=== PATIENT | female | born 1935 | race Caucasian/White ===

== ENCOUNTER 2020-06-30 07:01 | Inpatient (IN) | payer MEDICARE, SELFPAY ==
[2020-06-30] VITALS (14 sets, daily range): BP systolic 129–187; BP diastolic 75–95; PULSE 75–86; RESP 14–166; TEMP 36.6–37.1; O2SAT 92–98; BMI 35.4; BMI 35.2
--- NOTE | 2020-06-30 06:58 | ECG_ITS ---
APPROVED REPORT Exam: Resting ECG HR:82 bpm ECG Measurements Heart Rate 82 AXES QRSd 80 QRS 15 QT 394 T 66 QTc 460 Conclusion Accelerated Junctional rhythm Low voltage QRS Nonspecific ST abnormality Abnormal ECG Electronically signed by : Remberto Easton, 07/02/2020 07:30:34
--- NOTE | 2020-06-30 07:08 | HMH.EDGENADL ---
ED Disposition Condition on Discharge: Serious - Critical Care Critical Care Time: No <Eyad Aragon - Last Filed: 06/30/20 08:16> <Tosin Mcbride - Last Filed: 06/30/20 10:52> Clinical Impression: Elevated troponin Cerebrovascular accident Qualifiers: CVA mechanism: unspecified Qualified Code(s): I63.9 - Cerebral infarction, unspecified Hematuria Qualifiers: Hematuria type: gross Qualified Code(s): R31.0 - Gross hematuria Disposition: Still a Patient Referrals: Devyn Perez MD [Primary Care Provider] - Attestation: On 06/30/20, the high probability of a clinically significant, sudden or life threatening deterioration of the following system(s) required my full and direct attention, intervention and personal management. The time I documented below is in addition to time spent performing reported procedures but includes the following listed in this critical care notation. Medical Decision Making - [place] Inquiry Pt receiving controlled substance: No - Lab Data Result diagrams: 06/30/20 06:55 06/30/20 06:55 - Radiology Data #1 Image(s): Chest Image Reviewed: Yes I reviewed the patient's radiology image Preliminary Findings: Normal/NAD - CT Data CT Scan: Head Time Received: 07:[address] Reviewed: Yes: I have viewed the radiologist's interpretation - Physician Consults Physician Consulted: Gigi Time: 08:12 Reason -: Admission, Pt condition Comment/Response: Requests CT abdomen and pelvis with contrast to evaluate hematuria and status of cancer. Feel she is likely a hospice candidate. <Eyad Aragon - Last Filed: 06/30/20 08:16> - Lab Data Result diagrams: 06/30/20 06:55 06/30/20 06:55 - CT Data CT Scan: Abdomen <Tosin Mcbride - Last Filed: 06/30/20 10:52> Vital Signs: 06/30/20 07:05 06/30/20 07:09 06/30/20 07:50 Temperature 98.2 F Temperature Source Oral Pulse Rate 83 86 Pulse Rate [Radial] 82 Respiratory Rate 18 19 Blood Pressure 157/95 H Blood Pressure [Right Arm] 162/82 H Blood Pressure Mean 115 Blood Pressure Mean [Right Arm] 108 Blood Pressure Position [Right Arm] Sitting 02 Sat by Pulse Oximetry 93 L 98 94 L Oxygen Delivery Method Room Air 06/30/20 08:01 06/30/20 08:50 06/30/20 09:31 Temperature Temperature Source Pulse Rate 81 77 75 Pulse Rate [Radial] Respiratory Rate 26 H 14 26 H Blood Pressure 168/75 H 187/87 H Blood Pressure [Right Arm] Blood Pressure Mean 106 96 Blood Pressure Mean [Right Arm] Blood Pressure Position [Right Arm] 02 Sat by Pulse Oximetry 93 L 95 95 Oxygen Delivery Method 06/30/20 10:01 Temperature Temperature Source Pulse Rate 84 Pulse Rate [Radial] Respiratory Rate 25 H Blood Pressure 178/86 H Blood Pressure [Right Arm] Blood Pressure Mean 110 Blood Pressure Mean [Right Arm] Blood Pressure Position [Right Arm] 02 Sat by Pulse Oximetry 95 Oxygen Delivery Method - Lab Data Lab Results 06/30/20 06:55: WBC 9.4, RBC 4.30, Hgb 12.9, Hct 39.8, MCV 92.5, MCH 30.0, MCHC 32.4, RDW 15.2, Plt Count 388, MPV 7.2 L, Neut % (Auto) 77.9, Lymph % (Auto) 14.5, [place] % (Auto) 5.4, Eos % (Auto) 1.8, Baso % (Auto) 0.4, Neut # (Auto) 7.3, Lymph # (Auto) 1.4, [place] # (Auto) 0.5, Eos # (Auto) 0.2, Baso # (Auto) 0.0 06/30/20 06:55: Sodium 138, Potassium 3.8, Chloride 100, Carbon Dioxide 30, Anion Gap 11.8, BUN 12, Creatinine 0.50 L, Estimated Creat Clear 61, Estimated GFR 118, Est GFR ( Amer) 143, Glucose 174 H, Calcium 9.2, Troponin I 0.06 H 06/30/20 06:55: PT 11.0, INR 0.93, APTT 24.0 06/30/20 07:46: Chlamy pneumoniae PCR Not detected, Adenovirus (PCR) Not detected, B. pertussis DNA (PCR) Not detected, Coronavirus OC43 (PCR) Not detected, Coronavirus HKU1 (PCR) Not detected, Coronavirus 229E (PCR) Not detected, SARS-CoV-2 (PCR) Not detected, Coronavirus NL63 (PCR) Not detected, Human Metapneumovir PCR Not detected, Influenza A (H1) PCR Not detected, Influ A (H1N1/09) PCR Not detected
--- NOTE | 2020-06-30 07:15 | CT_ITS ---
PROCEDURE: CT HEAD/BRAIN WO CON CLINICAL INDICATION: increased left facial droop, prior CVA Prior CVA. Worsening left facial droop COMPARISON: No exams were available for comparison TECHNIQUE: Axial images obtained. All CT scans at the facility use one or more dose reduction, viz: automated exposure control, ma/kV adjustment per patient size (including targeted exams where dose is matched to indication, i.e. head), or iterative reconstruction technique. FINDINGS: No midline shift, mass effect, intracranial hemorrhage, hydrocephalus, or extra-axial fluid collection is evident. There is generalized atrophy with hypoattenuation of the periventricular white matter consistent with microangiopathic changes.. And 11 mm cystic areas present in the right basal ganglia contiguous with the body of the right lateral ventricle inferiorly and may be due to an area of cystic encephalomalacia from an old lacunar infarction. The calvarium has an unremarkable appearance. No mastoid effusion. No sinus air-fluid level. There is a lipoma in the left frontal scalp area measuring 3 cm by 0.7 cm. IMPRESSION: 1. No acute intracranial findings. 2. Atrophy with chronic ischemic changes with an old lacunar infarction in the right basal ganglia Dictated by: Nadeem Hernandez MD 06/30/2020 07:46 Nadeem Hernandez MD in [facility] 06/30/2020 07:46
--- NOTE | 2020-06-30 07:16 | XR_ITS ---
PROCEDURE: XR CHEST PORTABLE CLINICAL HISTORY: stroke symptoms COMPARISON: No exams were available for comparison FINDINGS: The cardiomediastinal silhouette and pulmonary vascularity are within normal limits. The lungs are clear without infiltrates, suspicious nodules, or pleural effusions. There monitor lines overlying the chest. No acute bony abnormalities. There are mild degenerate changes thoracic spine. There is prominent degenerate change of both shoulders. IMPRESSION: Nonacute chest findings Dictated by: Dr. Vivek Charles MD 06/30/2020 09:04 Dr. Vivek Charles MD in [facility] 06/30/2020 09:04
[2020-06-30 07:27] LABS: Chloride 100 mmol/L (98-107); Potassium 3.8 mmoL/L (3.5-5.1); Sodium 138 mmol/L (136-145)
[2020-06-30 07:30] LABS: Blood Urea Nitrogen 12 mg/dl (7-17); Creatinine Clearance Estimated 61 mL/min (50-200); Estimated Glomerular Filt Rate 118 ml/min (>60); GFR (African American) 143 ML/MIN (>60)
[2020-06-30 07:31] LABS: Anion Gap 11.8 mEq/L (5-15); Calcium 9.2 mg/dl (8.4-10.2); Carbon Dioxide 30 mmol/L (22.0-30.0); Glucose 174 mg/dl (74-100)
[2020-06-30 07:33] LABS: Basophils % 0.4 % (0.1-2.0); Eosinophils # 0.2 K/mm3 (0.0-0.4); Eosinophils % 1.8 % (0.1-12.0); Hematocrit 39.8 % (37.0-47.0); Hemoglobin 12.9 g/dL (12.2-16.2); Lymphocytes # 1.4 K/mm3 (0.7-4.5); Lymphocytes % 14.5 % (10-50); Mean Corpuscular HGB Conc 32.4 g/dL (31.8-35.4); Mean Corpuscular Volume 92.5 fl (81-99); Mean Platelet Volume 7.2 fl (7.4-10.4); Monocytes # 0.5 K/mm3 (0.1-1.0); Monocytes % 5.4 % (1.7-9.3); Neutrophils # 7.3 K/mm3 (1.8-7.8); Neutrophils % 77.9 % (37.0-80.0); Platelet Count 388 K/mm3 (142-424); Red Cell Distribution Width 15.2 % (11.5-17.5); White Blood Count 9.4 K/mm3 (4.8-10.8)
[2020-06-30 07:36] LABS: INR 0.93 (0.9-1.1)
[2020-06-30 07:43] LABS: Troponin I 0.06 ng/ml (0.00-0.034)
--- NOTE | 2020-06-30 07:50 | PC.NURSE ---
Dr salazar pt, dr Love in relationship counselor for callie, he has been paged for pt.
[2020-06-30 07:56] LABS: Adenovirus,PCR Not Detected (NotDetected); Bordetella Pertussis Not Detected (NotDetected); Chlamydophila Pneumoniae, PCR Not Detected (NotDetected); Coronavirus 19, PCR Not Detected (NotDetected); Coronavirus 229E Not Detected (NotDetected); Coronavirus NL63 Not Detected (NotDetected); Coronavirus OC43 Not Detected (NotDetected); Coronovirus HKU1,PCR Not Detected (NotDetected); Human Metapneumovirus Not Detected (NotDetected); Influenza A, PCR Not Detected (NotDetected); Influenza AH1, 2009 Not Detected (NotDetected); Influenza AH1, PCR Not Detected (NotDetected); Influenza AH3,PCR Not Detected (NotDetected); Influenza B, PCR Not Detected (NotDetected); Mycoplasma Pneumoniae, PCR Not Detected (NotDetected); Parainfluenza 1, PCR Not Detected (NotDetected); Parainfluenza 2, PCR Not Detected (NotDetected); Parainfluenza 3, PCR Not Detected (NotDetected); Parainfluenza 4, PCR Not Detected (NotDetected); Respiratory Syncytial Virus Not Detected (NotDetected); Rhinovirus/Enterovirus Not Detected (NotDetected)
[2020-06-30 08:02] LABS: Microscopic,Cath URINE MICROSCOPIC (MICROSCOPIC)
[2020-06-30 08:03] LABS: Appearance,Urine/Cath CLOUDY (Clear); Bilirubin,Cath Negative (Negative); Blood, Urine/Cath 3+ (Negative); Color,Urine/Cath DK YELLOW (Yellow); Glucose,Urine/Cath (UA) Negative (Negative); Ketones,Urine/Cath Negative (Negative); Leukocyte Esterase,Cath 1+ (Negative); Nitrate,Cath Negative (Negative); Protein,Urine/Cath 1+ (Negative)
--- NOTE | 2020-06-30 08:05 | PC.NURSE ---
ARGELIA CORNELL speaking with Dr. Yu
--- NOTE | 2020-06-30 08:10 | CT_ITS ---
PROCEDURE: CT ABDOMEN PELVIS W CON CLINICAL INDICATION: hematuria, h/o uterine cancer COMPARISON: No exams were available for comparison TECHNIQUE: IV Contrast: 75ML OPTIRAY 350 Oral Contrast none given Axial images obtained with sagittal and coronal reformats. All CT scans at the facility use one or more dose reduction, viz: automated exposure control, ma/kV adjustment per patient size (including targeted exams where dose is matched to indication, i.e. head), or iterative reconstruction technique. FINDINGS: Lower thorax: Minimal bilateral basilar atelectasis, there is no pleural fluid ABDOMEN: Liver: There is a tiny hepatic cyst anterior aspect left lobe of the liver. In addition there is a prominent coarse calcification adjacent to the small hepatic cysts which likely is a calcified hepatic cyst anterior aspect of the right lobe of the liver. Gallbladder: The gallbladder is mildly distended and there are multiple calcified gallstones near the neck of the gallbladder. The common bile duct is mildly dilated down to the Ampulla of Vater. Pancreas: There is a dominant cystic lesion in the uncinate process of the head of the pancreas in the pancreatic duct is mildly dilated. This cystic lesion measures 2.2 x 2.2 by 2.2 cm. There are smaller cystic lesions in the head of the pancreas as well. Recommend follow-up MRI scan of the abdomen for better evaluation of suspected pancreatic carcinoma. Spleen: unremarkable Adrenals: unremarkable Kidneys/ureters: The kidneys are normal in size and show symmetrical function. There is a dominant benign-appearing cyst lower pole right kidney measuring 6.0 x 5.7 x 6.5 cm. There is an extrarenal pelvis of the left kidney however there is no obstructive uropathy of either kidney. ABDOMEN & PELVIS: Stomach bowel: There is a moderate-sized hiatal hernia. The stomach is grossly normal. The small bowel is normal. The appendix is normal. There is a large amount stool throughout the colon. There is diffuse diverticulosis of the sigmoid colon without evidence of diverticulitis. Peritoneum: There is a small ventral hernia just to the left of midline containing possibly mesenteric fat, doubt loop of bowel within the hernia. There is a small umbilical hernia with a nondilated loop of small bowel projecting into the hernia.. Fluid collections. No obvious inflammatory changes. No free air. Lymph nodes: No enlarged lymph nodes apparent. Vasculature: There is diffuse arthrosclerotic calcification of the abdominal aorta but there is no aneurysm. Bones: There multilevel degenerate changes of the lower thoracic and lumbar spine. PELVIS: Reproductive: Patient is post hysterectomy by history for uterine carcinoma however there appears to be either recurrence of tumor or part of the uterus was left behind at the time of surgery. Bladder: There is a Dillon catheter at the base of the urinary bladder which is decompressed. There is a tiny amount of air within the urinary bladder and there is diffuse thickening of the bladder wall likely due to the fact it is decompressed. Appendix: Unremarkable. No distention or periappendiceal phlegmonous change. IMPRESSION: 1. Obvious cholelithiasis with probable calcified hepatic cyst immediately adjacent to the gallbladder 1. Dilated pancreatic duct with cystic lesion uncinate process head of the pancreas worrisome for carcinoma and consider follow-up MRI scan of the abdomen for additional evaluation. 2. Large benign-appearing simple cyst lower pole right kidney, extrarenal pelvis left kidney 3. Possible recurrence of uterine carcinoma, recommend the review of the surgical report regarding her hysterectomy 4. Diffuse diverticulosis sigmoid co
[2020-06-30 08:17] LABS: Bacteria,Urine/Cath TRACE /lpf; RBC,Urine/Cath TNTC # /hpf (0-3); WBC,Urine/Cath 20-50 #/hpf (0-3)
--- NOTE | 2020-06-30 08:29 | PC.NURSE ---
pt confused, no facial droop noted. family at bedside.
--- NOTE | 2020-06-30 09:30 | PC.NURSE ---
PT AND FAMILY UPDATED ON PLAN OF CARE
--- NOTE | 2020-06-30 10:35 | PC.NURSE ---
called dr acevedo for dr brannon, staff said they would tell him to call er.
[2020-06-30 11:04] LABS: Troponin I 0.05 ng/ml (0.00-0.034)
--- NOTE | 2020-06-30 12:33 | HMH.PHAINT ---
MEDICATION RECONCILIATION COMPLETED ON PATIENT USING [facility]. -AKI BALES, GRAHAMD
--- NOTE | 2020-06-30 12:34 | HMH.PHAVTE ---
[facility] Pharmacy VTE Monitoring - Patient Demographics Admission date: 06/30/20 Report Date: 06/30/20 Time: 12:34 Allergies/Adverse Reactions: Patient Allergies No Known Allergies Allergy (Verified 06/11/20 17:16) Height: 1.6 m Weight: 90.718 kg Patient Problems: Current Active Problems Cerebrovascular accident (Acute) Hematuria (Acute) Elevated troponin (Acute) - VTE Risk Labs: VTE Related Lab Results Hgb 12.9 g/dL (12.2-16.2) 06/30/20 06:55 Hct 39.8 % (37.0-47.0) 06/30/20 06:55 Plt Count 388 K/mm3 (142-424) 06/30/20 06:55 PT 11.0 seconds (10.1-12.5) 06/30/20 06:55 INR 0.93 (0.9-1.1) 06/30/20 06:55 APTT 24.0 seconds (22.8-30.6) 06/30/20 06:55 BUN 12 mg/dl (7-17) 06/30/20 06:55 Creatinine 0.50 mg/dl (0.52-1.04) L 06/30/20 06:55 Estimated Creat Clear 61 mL/min (50-200) 06/30/20 06:55 - Prophylaxis VTE Prophylaxis Ordered?: Yes Types of VTE Prophylaxis: TEDS Knee High Location of Applied Device: Bilateral Lower Extremeties
--- NOTE | 2020-06-30 12:47 | SW/DCPLANNER ---
This patient currently resides at [facility]. I have spoke with Iwona from [facility] to confirm patient is [facility] level of care at their facility. I will continue to update Iwona until patient is medically stable for discharge.
[2020-06-30 14:47] LABS: Troponin I 0.04 ng/ml (0.00-0.034)
[2020-06-30 16:23] LABS: POC Glucose,Bedside 140 (70-110)
[2020-06-30 16:58] LABS: POC Glucose,Bedside 148 (70-110)
--- NOTE | 2020-06-30 17:23 | PC.NURSE ---
Pt has been oriented to name, , and place this shift but not time. Pt states the year is 191 . Lung sounds remain CTA. Dillon cath remains patent and is draining cloudy, dark yellow urine. Pt has had vaginal bleeding that is dark red in color in her brief. Pt states this has been happening for a while . Pt is able to turn in bed w/ one assist. Left arm remains flexed at the elbow, but that is pt's baseline. Wild weakness noted to LLE as well. Non-pitting edema noted to BLE. No other acute changes or complaints at this time.
--- NOTE | 2020-06-30 20:15 | PC.NURSE ---
pt transferred to room 280 at this time via stretcher no distress noted at this time
--- NOTE | 2020-06-30 20:30 | HMH.HP ---
*Admission Date: 06/30/20 *Chief complaint: stroke *History of present illness: Patient is an 84-year-old white female who is admitted through the emergency room for stroke symptoms. [place] [facility] [place] noted worsening left facial droop and worsening dysarthria. She has a history of hemorrhagic stroke. CT imaging through the emergency room showed an old lacunar infarct in the right basal ganglion. Her NIH stroke score was 13. Patient also has a history of uterine carcinoma. She is status post hysterectomy. She is having some vaginal bleeding. She was being treated at , but subsequently made a decision to withhold treatment. CT abdomen and pelvis was obtained through the emergency room. Findings include a dilation of the pancreatic duct with a cystic lesion noted at the uncinate process. Cholelithiasis was evident. Cystic lesion noted in the right kidney. Findings also suspicious for a recurrence of her uterine cancer. Patient was unable to provide much of a history initially per ER work-up. Subsequently her speech has improved, he answers questions appropriately and is oriented to place. She knows that she is in [facility]. The left facial droop looks to be improved from previous description. She is able to move all 4 extremities. Practicing Md Anesthesiologist is weak bilaterally but nearly symmetric. He appears to be comfortable. There is no overt jaundice. Her abdomen is soft, without focal tenderness. She is admitted for further evaluation and treatment. Anticoagulation, platelet inhibitors are contraindicated at present given her history of hemorrhagic stroke and vaginal bleeding. [facility] History Medical History: Reports:: Cerebrovascular Accident, Depression, Diabetes Mellitus Type 2, Hyperlipidemia, Hypertension, Transient Ischemic Attacks (TIA) Denies:: Diabetes Mellitus Type 1 *Have you ever received a pneumonia vaccine?: No (refused) *Have you received a flu vaccine this season?: Yes Other Medical History: Reports: Other Other Surgeries: Yes: No Previous Surgery, Hysterectomy-Total Amputation: No Fractures: No - *Social History Last grade of school completed: High school graduate Smoking Status: Never smoker Alcohol Intake: never Alcohol Intake Frequency:: other Substance Use Type: denies use *Occupational Status:: disabled Housing: senior living Household Members: other *Travel in the last 8 weeks: None - Psychiatric History Pschychiatric History:: Reports:: Depression Family Hx:: Unable to obtain Review of Systems - Constitutional Reports lack of energy, Reports weakness - Eyes Denies loss of vision - ENT Reports abnormal hearing - *Cardiovascular Denies chest pain - *Respiratory Denies chest congestion - *Gastrointestinal Denies abdominal pain - *Genitourinary Reports other Comments: vaginal bleeding, history of uterine ca - *Musculoskeletal Reports abnormal walking, Reports muscle weakness - Integumentary/Breasts Reports other Comments: facial nodules noted - *Neurologic Reports abnormal speech, Reports unsteadiness, Reports weakness - Psychiatric Reports confusion, Denies anxiety - Endocrine Denies flushing - Hematologic/Lymphatic Reports easy bleeding - Allergic/Immunologic Denies hives Meds Home Medications Medication Instructions Recorded Confirmed Type bisacodyl 10 mg rectal suppository 10 mg AR DAILY PRN #28 each 04/13/18 06/30/20 Rx sennosides 8.6 mg-docusate sodium 1 tab PO BID PRN #30 tab 04/13/18 06/30/20 Rx 50 mg tablet sertraline 50 mg tablet 50 mg PO DAILY #90 tab 04/13/18 06/30/20 Rx Acetaminophen [Acetaminophen 325mg 650 mg PO Q6HP PRN 06/30/20 06/30/20 History tab] Atorvastatin Calcium [Lipitor 40mg 40 mg PO HS 06/30/20 06/30/20 History Tablet*] Loratadine [Claritin 10mg 10 mg PO DAILY 06/30/20 06/30/20 History Tablet] Losartan Potassium 100 mg PO DAILY 06/30/20
[2020-06-30 20:32] LABS: Troponin I 0.04 ng/ml (0.00-0.034)
[2020-07-01] VITALS (10 sets, daily range): BP systolic 151–161; BP diastolic 68–91; PULSE 60–80; RESP 18–20; TEMP 36.7–37; O2SAT 92–100
[2020-07-01 05:16] LABS: POC Glucose,Bedside 167 (70-110)
--- NOTE | 2020-07-01 05:49 | PC.NURSE ---
pt has rested well throughout shift, no change from previous assessment, moderate amount of vaginal bleeding lita care provided, catheter patent, vss, no needs at this time will continue to monitor.
[2020-07-01 06:51] LABS: Basophils % 0.4 % (0.1-2.0); Eosinophils # 0.2 K/mm3 (0.0-0.4); Lymphocytes # 1.2 K/mm3 (0.7-4.5); Lymphocytes % 16.3 % (10-50); Mean Corpuscular HGB Conc 33.2 g/dL (31.8-35.4); Mean Corpuscular Hemoglobin 30.9 pg (27.0-31.2); Mean Corpuscular Volume 92.9 fl (81-99); Mean Platelet Volume 7.8 fl (7.4-10.4); Monocytes # 0.5 K/mm3 (0.1-1.0); Monocytes % 6.5 % (1.7-9.3); Neutrophils # 5.5 K/mm3 (1.8-7.8); Neutrophils % 74.8 % (37.0-80.0); Platelet Count 330 K/mm3 (142-424); Red Blood Count 3.66 M/mm3 (4.20-5.40); Red Cell Distribution Width 15.1 % (11.5-17.5); White Blood Count 7.4 K/mm3 (4.8-10.8)
[2020-07-01 06:58] LABS: Hemoglobin 11.3 g/dL (12.2-16.2)
[2020-07-01 07:00] LABS: Chloride 105 mmol/L (98-107); Potassium 4.3 mmoL/L (3.5-5.1); Sodium 139 mmol/L (136-145)
[2020-07-01 07:03] LABS: Alanine Aminotransferase 15 U/L (12-78); Albumin Level 3.5 g/dl (3.5-5.0); Albumin/Globulin Ratio 1.3 (1.1-1.8); Alkaline Phosphatase 174 U/L (38-126); Anion Gap 7.3 mEq/L (5-15); Aspartate Amino Transferase 26 U/L (14-36); Bilirubin,Total 0.5 mg/dl (0.2-1.3); Blood Urea Nitrogen 15 mg/dl (7-17); Carbon Dioxide 31 mmol/L (22.0-30.0); Creatinine Clearance Estimated 69 mL/min (50-200); Estimated Glomerular Filt Rate 95 ml/min (>60); GFR (African American) 116 ML/MIN (>60); Globulin 2.7 g/dL (1.3-3.2); Glucose 149 mg/dl (74-100); Total Protein,Serum 6.2 g/dl (6.3-8.2)
--- NOTE | 2020-07-01 07:13 | PC.NURSE ---
report given to Leticia Jonas RN
--- NOTE | 2020-07-01 09:10 | INFXCTL.NOTE ---
TOLD DR. ADDISON ABOUT GYNO CONSULT. STATES IT WOULD BE BEST FOR DR. FRANCISCO TO ROUND ON PATIENT THIS FRIDAY.
--- NOTE | 2020-07-01 13:35 | HMH.ACPN2 ---
Internal Medicine - PN: Subj *Date: 07/01/20 *Time: 09:00 Interval history: pt laying in bed with family at bedside pt answering questions, left side weakness Exam Vital signs and Labs for Last 24 Hours: Temp Pulse Resp BP Pulse Ox 98.2 F 69 18 151/78 H 100 07/01/20 08:00 07/01/20 08:00 07/01/20 08:00 07/01/20 08:00 07/01/20 08:30 Laboratory Results - last 24 hr 06/30/20 12:22: POC Glucose 140 H 06/30/20 14:02: Troponin I 0.04 H 06/30/20 16:50: POC Glucose 148 H 06/30/20 20:05: Troponin I 0.04 H 06/30/20 21:11: POC Glucose 167 H 07/01/20 06:30: WBC 7.4, RBC 3.66 L, Hgb 11.3 L D, Hct 34.0 L, MCV 92.9, MCH 30.9, MCHC 33.2, RDW 15.1, Plt Count 330, MPV 7.8, Neut % (Auto) 74.8, Lymph % (Auto) 16.3, [place] % (Auto) 6.5, Eos % (Auto) 2.0, Baso % (Auto) 0.4, Neut # (Auto) 5.5, Lymph # (Auto) 1.2, [place] # (Auto) 0.5, Eos # (Auto) 0.2, Baso # (Auto) 0.0 07/01/20 06:30: Sodium 139, Potassium 4.3, Chloride 105, Carbon Dioxide 31 H, Anion Gap 7.3, BUN 15, Creatinine 0.60, Estimated Creat Clear 69, Estimated GFR 95, Est GFR ( Amer) 116, Glucose 149 H, Calcium 9.0, Total Bilirubin 0.5, AST 26, ALT 15, Alkaline Phosphatase 174 H, Total Protein 6.2 L, Albumin 3.5, Globulin 2.7, Albumin/Globulin Ratio 1.3 I & O for Last 24 hours: Intake & Output 06/29/20 06/30/20 07/01/20 07/02/20 11:59 11:59 11:59 11:59 Intake Total 600 / 600 Output Total 450 / 450 Balance 150 / 150 Weight 200 lb 224 lb 13.944 oz Microbiology Reports for the Last 24 Hours: Microbiology 06/30/20 07:55 Urine,Catheterized Urine Culture - Preliminary NO GROWTH AFTER 24 HOURS - Constitutional no acute distress, obese - *Routine HEENT Exam Head: Present: normocephalic Eye: Present: PERRL ENT: Present: mucous membranes moist - *Routine Neck Exam Present: supple. Absent: lymphadenopathy - *Routine Respiratory Exam Present: CTA bilaterally - *Routine Cardiovascular Exam Present: RRR - *Routine Abdominal Exam Present: soft, normoactive bowel sounds, tenderness - *Routine Extremities Exam Present: edema, normal capillary refill. Absent: cyanosis, clubbing - *Routine Skin Exam Present: warm. 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 Category: Medical Code(s): I69.922 - Dysarthria following unspecified cerebrovascular disease (3) Essential (primary) hypertension Status: Chronic Category: Medical Code(s): I10 - Essential (primary) hypertension (4) Hyperlipidemia Status: Chronic Qualifiers: Hyperlipidemia type: other hyperlipidemia Qualified Code(s): E78.49 - Other hyperlipidemia Category: Medical Code(s): E78.5 - Hyperlipidemia, unspecified (5) Obesity Status: Chronic Qualifiers: Obesity type: due to excess calories Obesity classification: adult class 2 (BMI 35 - 39.9) Serious obesity comorbidity presence: unspecified whether serious comorbidity present Body mass index: BMI 35.0-35.9 Qualified Code(s): E66.09 - Other obesity due to excess calories; Z68.35 - Body mass index [BMI] 35.0-35.9, adult Category: Medical Code(s): E66.9 - Obesity, unspecified (6) Other specified depressive episodes Status: Chronic Category: Medical Code(s): F32.89 - Other specified depressive episodes (7) Uterine cancer Status: Chronic Category: Medical Code(s): C55 - Malignant neoplasm of uterus, part unspecified (8) Lesion of pancreas Status: Acute Category: Medic
--- NOTE | 2020-07-01 13:50 | PC.NURSE ---
PATIENT SITTING UP IN BED EATING LUNCH. VISITOR IS AT BEDSIDE. NO CURRENT NEEDS VOICED TO NURSE.
--- NOTE | 2020-07-01 15:07 | PC.NURSE ---
PERICARE PROVIDED TO PT. CHANGED CHUX AND CLEAN ATTENDS PUT ON. MODERATE AMOUNT OF DARK RED BLEEDING NOTED. WILL WEIGH THIS. PT REPORTS NO PAIN. LEGS ELEVATED R/T EDEMA TO LOWER EXTREMITIES. WILL CONTINUE TO ASSESS BLEEDING.
--- NOTE | 2020-07-01 16:00 | PC.NURSE ---
REASSESSMENT PERFORMED AT THIS TIME, NO CHANGED NOTED. A/OX4. PT IS HARD OF HEARING. LEFT SIDED WEAKNESS NOTED FROM PREVIOUS STROKE. PULSES 2+. 2+ EDEMA NOTED TO BLE. ELEVATED ON PILLOWS. IV TO RIGHT A/C SALINE LOCKED. PT DENIES PAIN. LUNGS CTA AND BOWEL ACTIVE X4. NO BM MY SHIFT. SMALL AMOUNT OF VAGINAL BLEEDING NOTED NOW. DARK RED IN COLOR. NO NEEDS.
--- NOTE | 2020-07-01 18:20 | PC.NURSE ---
NURSE AND TECH IN ROOM CHANGING PATIENT . MODERATE AMOUNT OF BRIGHT RED VAGINAL BLEEDING. EGG SIZED CLOTS NOTED. PERICARE PROVIDED. PT REPORTS NO PAIN AT THIS TIME. WILLCONTINUE TO CLOSELY MONITOR HER BLEEDING. NEW ATTENDS AND PADS APPLIED.
[2020-07-02 04:35] VITALS: BP 145/87; PULSE 96; RESP 18; TEMP 37.1; O2SAT 94
--- NOTE | 2020-07-02 05:24 | PC.NURSE ---
Total EBL from vaginal bleeding this shift was 477mls.
--- NOTE | 2020-07-02 08:00 | US_ITS ---
PROCEDURE: US PELVIC CLINICAL INDICATION: pelvic mass , History of uterine cancer COMPARISON: CT CT ABDOMEN PELVIS W CON from 06/30/2020 FINDINGS: Patient has had a prior total hysterectomy by report. There is a midline soft tissue mass in the pelvis measuring 6 x 4 cm corresponding to the abnormality noted CT scan suspicious for recurrence uterine cancer. On the CT scan there is are 2 soft tissue masses 1 in the uterine bed in 1 superior to the uterine bed measuring 4 cm. No cul-de-sac fluid. IMPRESSION: Solid-appearing soft tissue mass of the pelvis suspicious for recurrence uterine cancer Dictated by: Nadeem Hernandez MD 07/02/2020 13:49 Nadeem Hernandez MD in [facility] 07/02/2020 13:49
[2020-07-02 08:08] VITALS: BP 152/87; PULSE 70; RESP 18; TEMP 37.2; O2SAT 94
[2020-07-02 08:20] VITALS: O2SAT 94
[2020-07-02 08:55] LABS: Anion Gap 9.7 mEq/L (5-15); Basophils % 0.2 % (0.1-2.0); Blood Urea Nitrogen 14 mg/dl (7-17); Calcium 9.1 mg/dl (8.4-10.2); Carbon Dioxide 28 mmol/L (22.0-30.0); Chloride 102 mmol/L (98-107); Creatinine Clearance Estimated 69 mL/min (50-200); Eosinophils # 0.1 K/mm3 (0.0-0.4); Eosinophils % 1.7 % (0.1-12.0); Estimated Glomerular Filt Rate 95 ml/min (>60); GFR (African American) 116 ML/MIN (>60); Glucose 216 mg/dl (74-100); Hematocrit 34.5 % (37.0-47.0); Hemoglobin 11.5 g/dL (12.2-16.2); Mean Corpuscular HGB Conc 33.2 g/dL (31.8-35.4); Mean Corpuscular Hemoglobin 30.9 pg (27.0-31.2); Mean Corpuscular Volume 92.9 fl (81-99); Monocytes # 0.4 K/mm3 (0.1-1.0); Monocytes % 4.6 % (1.7-9.3); Neutrophils % 81.6 % (37.0-80.0); Platelet Count 363 K/mm3 (142-424); Potassium 3.7 mmoL/L (3.5-5.1); Red Blood Count 3.71 M/mm3 (4.20-5.40); Red Cell Distribution Width 15.1 % (11.5-17.5); Sodium 136 mmol/L (136-145); White Blood Count 8.6 K/mm3 (4.8-10.8)
--- NOTE | 2020-07-02 09:30 | PC.NURSE ---
RADIOLOGY AT BEDSIDE PERFORMING PELVIC ULTRASOUND
--- NOTE | 2020-07-02 09:50 | HMH.ACPN2 ---
Internal Medicine - PN: Subj *Date: 07/03/20 *Time: 07:50 Interval history: pt with improvement w/o pain and no acute neuro changes Exam Vital signs and Labs for Last 24 Hours: Temp Pulse Resp BP Pulse Ox 98.9 F 70 18 152/87 H 94 L 07/02/20 08:08 07/02/20 08:08 07/02/20 08:08 07/02/20 08:08 07/02/20 08:08 Laboratory Results - last 24 hr 07/02/20 08:31: WBC 8.6, RBC 3.71 L, Hgb 11.5 L, Hct 34.5 L, MCV 92.9, MCH 30.9, MCHC 33.2, RDW 15.1, Plt Count 363, MPV 8.0, Neut % (Auto) 81.6 H, Lymph % (Auto) 12.0, Sully % (Auto) 4.6, Eos % (Auto) 1.7, Baso % (Auto) 0.2, Neut # (Auto) 7.0, Lymph # (Auto) 1.0, Sully # (Auto) 0.4, Eos # (Auto) 0.1, Baso # (Auto) 0.0 07/02/20 08:31: Sodium 136, Potassium 3.7, Chloride 102, Carbon Dioxide 28, Anion Gap 9.7, BUN 14, Creatinine 0.60, Estimated Creat Clear 69, Estimated GFR 95, Est GFR ( Amer) 116, Glucose 216 H, Calcium 9.1 I & O for Last 24 hours: Intake & Output 06/29/20 06/30/20 07/01/20 07/02/20 11:59 11:59 11:59 11:59 Intake Total 1000 / 1000 240 / 240 Output Total 450 / 450 1377 / 1377 Balance 550 / 550 -1137 / -1137 Weight 200 lb 224 lb 13.944 oz Microbiology Reports for the Last 24 Hours: Microbiology 06/30/20 07:55 Urine,Catheterized Urine Culture - Final NO GROWTH AFTER 48 HOURS - Constitutional no acute distress, obese - *Routine HEENT Exam Head: Present: normocephalic Eye: Present: EOMI, PERRL ENT: Present: mucous membranes dry - *Routine Neck Exam Present: supple - *Routine Respiratory Exam Present: CTA bilaterally - *Routine Cardiovascular Exam Present: RRR, murmur, S4 - *Routine Abdominal Exam Present: soft - *Routine Extremities Exam Absent: calf tenderness - *Routine Skin Exam Present: intact - *Routine Neurological Exam Present: alert, CN II-XII intact - Routine Psychiatric Exam Present: normal affect Assessment and Plan (1) Cerebrovascular accident Status: Acute Qualifiers: CVA mechanism: unspecified Qualified Code(s): I63.9 - Cerebral infarction, unspecified Category: Medical Code(s): I63.9 - Cerebral infarction, unspecified (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 Category: Medical Code(s): I69.922 - Dysarthria following unspecified cerebrovascular disease (3) Essential (primary) hypertension Status: Chronic Category: Medical Code(s): I10 - Essential (primary) hypertension (4) Hyperlipidemia Status: Chronic Qualifiers: Hyperlipidemia type: other hyperlipidemia Qualified Code(s): E78.49 - Other hyperlipidemia Category: Medical Code(s): E78.5 - Hyperlipidemia, unspecified (5) Obesity Status: Chronic Qualifiers: Obesity type: due to excess calories Obesity classification: adult class 2 (BMI 35 - 39.9) Serious obesity comorbidity presence: unspecified whether serious comorbidity present Body mass index: BMI 35.0-35.9 Qualified Code(s): E66.09 - Other obesity due to excess calories; Z68.35 - Body mass index [BMI] 35.0-35.9, adult Category: Medical Code(s): E66.9 - Obesity, unspecified (6) Other specified depressive episodes Status: Chronic Category: Medical Code(s): F32.89 - Other specified depressive episodes (7) Uterine cancer Status: Chronic Category: Medical Code(s): C55 - Malignant neoplasm of uterus, part unspecified (8) Lesion of pancreas Status: Acute Category: Medical Code(s): K86.9 - Disease of pancreas, unspecified (9) Cholelithiases Status: Acute Category: Medical Code(s): K80.20 - Calculus of gallbladder without cholecystitis without obstruction
[2020-07-02 10:04] LABS: POC Glucose,Bedside 186 (70-110)
[2020-07-02 10:04] LABS: POC Glucose,Bedside 158 (70-110)
[2020-07-02 10:04] LABS: POC Glucose,Bedside 132 (70-110)
[2020-07-02 10:35] LABS: POC Glucose,Bedside 179 (70-110)
[2020-07-02 11:36] LABS: POC Glucose,Bedside 173 (70-110)
[2020-07-02 16:00] VITALS: BP 142/67; PULSE 69; RESP 20; TEMP 37.1; O2SAT 94
--- NOTE | 2020-07-02 16:10 | PC.NURSE ---
PT KEEPS LEFT ARM DRAWN UP TOWARDS BODY. MILD WEAKNESS NOTED R/T PREVIOUS STROKE AND MILD WEAKNESS IN LEFT LOWER EXTREMITY WELL
--- NOTE | 2020-07-02 16:10 | PC.NURSE ---
NO CHANGES NOTED FROM PREVIOUS ASSESSMENT. LUNGS REMAIN CLEAR, AND BOWEL SOUNDS HYPOACTIVE X4. NO BM ON MY SHIFT. YEN IN PLACE DRAINING CLEAR YELLOW URINE. IV SALINE LOCKED TO RIGHT A/C. EDEMA 2+ TO BLE ELEVATED ON PILLOWS. CHANGED PATIENT CHUX AGAIN. MODERATE AMOUNT OF DARK RED BLEEDING. HAS BEEN MUCH LESS IN AMOUNT TODAY. PT REPORTS NO PAIN WITH THIS. PT CONFUSED AT TIMES, EXTREMELY HARD OF HEARING. BED ALARM HAS BEEN ON THROUGHOUT THE DAY. PT IS TO HAVE A CONSULT WITH DR. MARYAM PATEL AND TO HAVE AN MRI TOMORROW AROUND NOON. NO NEED VOICED.
[2020-07-02 16:23] LABS: POC Glucose,Bedside 165 (70-110)
--- NOTE | 2020-07-02 17:15 | PC.NURSE ---
PT HAS BECAME MORE CONFUSED THIS AFTERNOON. REORIENTED TO PLACE. PT STATES THAT SHE WAS AT HER HOUSE. PT ALSO IS RED/YEAST LIKE AREA IN GROIN AND UNDER ABD. WILL NOTIFY MD IN ROUNDS TO ORDER MEDICATION FOR THIS. PT CLEANED UP AND NEW CHUX AND PAD APPLIED. BABY POWDER APPLIED TO FOLDS. DINNER TRAY SAT UP
--- NOTE | 2020-07-02 19:25 | PC.NURSE ---
PT ATTEMPTING TO CLIMB OUT OF BED, PT SOME CONFUSED, RE-DIRECTED AND REPOSITIONED BACK INTO BED
[2020-07-02 20:00] VITALS: BP 162/87; PULSE 75; RESP 18; TEMP 37; O2SAT 94
[2020-07-03] VITALS (7 sets, daily range): BP systolic 130–159; BP diastolic 71–84; PULSE 70–81; RESP 17–20; TEMP 36.7–37.1; O2SAT 94–97; BMI 34.7
--- NOTE | 2020-07-03 04:52 | PC.NURSE ---
NO ACUTE CHANGES FROM PREVIOUS ASSESSMENT. PT CONFUSED, REORIENTS EASILY. BED ALRM ON FOR SAFEY. PT VERY HARD OF HEARING, PLEASANT. LUNGS CTAB. VITAL SIGNS STABLE, AFEBRILE. SALINE LOCK PATENT. YEN CATH IN PLACE, DRAINING CLEAR YELLOW URINE. PT HAD LARGE BM EARLIER THIS SHIFT. PT DENIES PAIN. SMALLER AMOUNT OF VAGINAL BLEEDING NOTED FROM EARLIER THIS SHIFT, BLOOD DARKER IN COLOR. NO CLOTS. EDEMA TO BLE 2+, ELEVATED. NOTED TO HAVE MILD LEFT SIDED WEAKNESS TO LLE AND LEFT ARM HELD CLOSER TO UPPER BODY FROM PREVIOUS STROKE. PT WITHOUT NEEDS. WILL CONTINUE TO MONITOR
[2020-07-03 05:49] LABS: POC Glucose,Bedside 145 (70-110)
--- NOTE | 2020-07-03 07:22 | PC.NURSE ---
Spoke with Eliza from care management- patient okay to have MRI
--- NOTE | 2020-07-03 08:30 | PC.NURSE ---
REDNESS/YEAST INFECTION NOTED UNDER ABD FOLD AND IN GROIN. PT KEEPS LEFT ARM DRAWN TO SIDE R/T PRIOR STROKE DEFICIT. PT IS A/OX4. THIS AM. STATES THAT SHE WISHES TO COULD GO HOME ([facility]). PT IS NPO FOR MRI THIS AFTERNOON. SMALL AMOUNT OF DARK RED VAGINAL BLEEDING NOTED. WILL CONTINUE TO MONITOR. VISITOR IS AT BEDSIDE. YEN REMAIN IN PLACE. REPORTS TO REMOVE AFTER MRI.
--- NOTE | 2020-07-03 09:48 | SW/DCPLANNER ---
Addendum entered by Marnie White 07/05/20 15:14: PATIENT IS RETURNING BACK TO HER HALF-WAY BED AT [facility] AND WILL BE PRIVATE PAY.. DR RIVERA AT HAS BEEN FAXED THIS PATIENTS MEDICAL RECORD FROM THIS STAY AND WILL MAKE ANY RECOMMENDATIONS TO WHAT SHE THINKS NEEDS TO BE DONE OR JUST TO SEEK PALLIATIVE CARE... SHE WILL BE FOLLOWING UP WITH MD...BROTHER IS AWARE AND IN AGREEMENT OF THE PLAN.. Original Note: SENT UPDATED INFORMATION TO [facility] ON THIS PATIENT... MS FAN IS A RESIDENT OF [facility] IN THE ICF SECTION AND WILL BE RETURNING BACK THERE WHEN MEDICALLY STABLE TO DO SO....
--- NOTE | 2020-07-03 10:40 | PC.NURSE ---
RADIOLOGY HERE AT BEDSIDE SPEAKING WITH PATIENT.
--- NOTE | 2020-07-03 10:40 | PC.NURSE ---
NURSE CHANGED PATIENTS BRIEF. SMALL LOOSE GREEN/BROWN BOWEL MOVEMENT. PERICARE DONE AT THIS TIME. NYSTATIN APPLIED TO RED AREA. PT TURNS IN BED WELL. NO VAGINAL BLEEDING NOTED.
--- NOTE | 2020-07-03 10:47 | DIET.NUTRFU ---
PO intakes 75%, weight stable, BG moderate- avg. 170. Pt on ADA/Low sodium diet with soft modifications and adaptive equipment. 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
--- NOTE | 2020-07-03 11:30 | MR_ITS ---
PROCEDURE: MR PELVIS WO/W CON CLINICAL INDICATION: Pelvic mass evaluation. History of uterine cancer Abnormal CT scan 07/01/11. Prior hx of uterine cancer. COMPARISON: CT CT ABDOMEN PELVIS W CON from 06/30/2020 TECHNIQUE: Routine multiplanar multi echo sequences are performed without and with gadolinium enhancement. FINDINGS: Excessive motion artifact is noted. There is a bilobed confluent mass in the left paracentral aspect of the pelvis measuring 9 x 5.6 cm. Mass is ill-defined and heterogeneous. The lower portion of the mass lies between the rectum and the urinary bladder with a superior portion just lateral to the sigmoid colon and may actually involve the sigmoid colon. This however is questionable. Small satellite nodules present superiorly medial to the iliac vessels. This portion measures 1.9 cm. This could be related to an enlarged lymph node is well. This mass is felt to be the cause of the left ureteral dilatation. A Dillon catheter is present. There is a minimal amount of fluid in the pelvis. There are few small iliac lymph nodes. IMPRESSION: Bilobed confluent heterogeneous mass in the pelvis as described above causing left-sided hydronephrosis and hydroureter and may be invading the sigmoid colon. The mass may be due to residual or recurrence uterine neoplasm or could be secondary to colon cancer or a combination of both. Dictated by: Nadeem Hernandez MD 07/04/2020 06:26 Nadeem Hernandez MD in [place] 07/04/2020 06:26
--- NOTE | 2020-07-03 11:30 | MR_ITS ---
PROCEDURE: MR ABDOMEN WO/W CON CLINICAL INDICATION: Pancreatic mass. Follow-up abnormal CT scan Prior hx of uterine cancer. Pt had a hard time holding breath. COMPARISON: CT CT ABDOMEN PELVIS W CON from 06/30/2020 TECHNIQUE: Routine multiplanar multi echo sequences are performed without and with gadolinium enhancement. MRCP images also performed. FINDINGS: The exam is limited secondary to motion artifact. Small abnormalities may not be delineated due to this excessive motion. Liver: Small cystic area in the region of the falciform ligament anteriorly measuring 13 mm. Just posterior to this is an area of slight increased T2 signal corresponding to the area of calcification on the CT scan. This does not show any significant enhancement.. Gallbladder and bile ducts: Gallstones. No biliary dilatation. MRCP images are limited secondary to motion artifact. Pancreas: There is prominent pancreatic ductal dilatation measuring up to 8 mm in the body of the pancreas. The pancreatic duct has a somewhat beaded appearance. The pancreatic ductal dilatation of both the main an accessory pancreatic duct gives a appearance of a cluster of cyst in the pancreatic head however, this is felt to be due to ductal dilatation a possibly 1 additional small cyst. There is a simple cyst in the uncinate process of the pancreatic head measuring 2 cm. The post enhanced images are motion degraded with inadequate evaluation of this region due to motion. Adrenal glands: Unremarkable Kidneys and ureters: There are bilateral renal cysts measuring up to 5 cm on the right and 2.7 cm on the left. A solid left renal mass is present measuring 3.4 cm with mild heterogeneous enhancement suspicious for neoplasm. There is left-sided hydronephrosis and hydroureter which may be secondary to the pelvic mass described in the pelvis report. There is mild retroperitoneal adenopathy Soft tissues: There is a heterogeneously enhancing 4 cm masses projecting from the left anterior abdominal wall musculature with a small cystic component anteriorly and laterally becoming hyperintense on the T2 weighted images suspicious for metastatic disease. Periumbilical soft tissue masses are also present both anterior and posterior to the abdominal wall measuring up to 2 cm. 3 cm mass in the right anterior abdominal wall at the level of the umbilicus Mild lumbar scoliosis convex left IMPRESSION: 1. Pancreatic ductal dilatation. The common bile duct does not appear dilated. The etiology of the dilatation is uncertain. A lesion in the pancreatic duct or small lesion in the pancreatic head is not excluded. Pancreatic parenchymal evaluation is limited secondary to motion artifact. A stricture is also consideration. ERCP may provide further evaluation. There is a 2 cm cystic area in the uncinate process of the pancreas which has benign characteristics. 2. 3.4 cm solid appearing left renal mass suspicious for neoplasm. This could be primary or metastatic. There is mild retroperitoneal adenopathy. Bilateral renal cysts. Left hydronephrosis and ureteral dilatation which may be related to pelvic mass 3. Cholelithiasis. 4. Multiple abdominal wall masses suspicious for metastatic disease. Dictated by: Nadeem Hernandez MD 07/04/2020 06:15 Nadeem Hernandez MD in [place] 07/04/2020 06:15
[2020-07-03 11:41] LABS: POC Glucose,Bedside 152 (70-110)
--- NOTE | 2020-07-03 12:00 | PC.NURSE ---
Nurse cleaned patient up at this time. New brief and chux applied. pericare provided. noted legs to be red. will get barrier cream and apply. Patients buttock is free of any wounds or open areas/redness. pt is now getting nystatin applied to folds as well. will continue to monitor and keep pt dry to prevent skin breakdown. pt can not communicate when she needs to have bowel movement.
--- NOTE | 2020-07-03 12:15 | PC.NURSE ---
pt off unit - went to MRI with radiology
--- NOTE | 2020-07-03 12:59 | HMH.ACPN2 ---
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 Exam Vital signs and Labs for Last 24 Hours: Temp Pulse Resp BP Pulse Ox 98.5 F 81 18 153/80 H 97 07/03/20 08:15 07/03/20 08:15 07/03/20 08:15 07/03/20 08:15 07/03/20 08:30 Laboratory Results - last 24 hr 07/02/20 16:10: POC Glucose 165 H 07/03/20 05:42: POC Glucose 145 H 07/03/20 11:33: POC Glucose 152 H I & O for Last 24 hours: Intake & Output 07/01/20 07/02/20 07/03/20 07/04/20 11:59 11:59 11:59 11:59 Intake Total 1000 / 1000 240 / 240 840 / 840 Output Total 450 / 450 1377 / 1377 2300 / 2300 Balance 550 / 550 -1137 / -1137 -1460 / -1460 Weight 224 lb 13.944 oz 221 lb 3 oz - Constitutional no acute distress, obese - *Routine HEENT Exam Head: Present: normocephalic Eye: Present: EOMI, PERRL ENT: Present: mucous membranes dry - *Routine Neck Exam Present: supple - *Routine Respiratory Exam Present: decreased breath sounds - *Routine Cardiovascular Exam Present: RRR - *Routine Abdominal Exam Present: soft - *Routine Extremities Exam Absent: calf tenderness - *Routine Skin Exam Present: intact - *Routine Neurological Exam Present: alert. 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 Category: Medical Code(s): I69.922 - Dysarthria following unspecified cerebrovascular disease (3) Essential (primary) hypertension Status: Chronic Category: Medical Code(s): I10 - Essential (primary) hypertension (4) Hyperlipidemia Status: Chronic Qualifiers: Hyperlipidemia type: other hyperlipidemia Qualified Code(s): E78.49 - Other hyperlipidemia Category: Medical Code(s): E78.5 - Hyperlipidemia, unspecified (5) Obesity Status: Chronic Qualifiers: Obesity type: due to excess calories Obesity classification: adult class 2 (BMI 35 - 39.9) Serious obesity comorbidity presence: unspecified whether serious comorbidity present Body mass index: BMI 35.0-35.9 Qualified Code(s): E66.09 - Other obesity due to excess calories; Z68.35 - Body mass index [BMI] 35.0-35.9, adult Category: Medical Code(s): E66.9 - Obesity, unspecified (6) Other specified depressive episodes Status: Chronic Category: Medical Code(s): F32.89 - Other specified depressive episodes (7) Uterine cancer Status: Chronic Category: Medical Code(s): C55 - Malignant neoplasm of uterus, part unspecified (8) Lesion of pancreas Status: Acute Category: Medical Code(s): K86.9 - Disease of pancreas, unspecified (9) Cholelithiases Status: Acute Category: Medical Code(s): K80.20 - Calculus of gallbladder without cholecystitis without obstruction
--- NOTE | 2020-07-03 14:15 | PC.NURSE ---
pt back to floor at this time. clean chux and draw sheet put under patient. holcomb d/c per dr. vazquez orders. pt. tolerated well. nystatin applied to red areas. pts brief was clean. placed purewick on patient and education provided.
--- NOTE | 2020-07-03 15:09 | PC.NURSE ---
BRIEF CLEAN THIS HOUR.
--- NOTE | 2020-07-03 15:44 | PC.NURSE ---
dr. campo at bedside for consult
--- NOTE | 2020-07-03 15:45 | PC.NURSE ---
dr. campo at bedside and nurse x2. performing vaginal exam with speculum- small bleeding noted. pt tolerated well
--- NOTE | 2020-07-03 16:26 | PC.NURSE ---
REASSESSMENT DONE AT THIS TIME. NO CHANGES NOTED. A/OX4. LUNGS CTA AND BOWEL SOUNDS ACTIVE X4. DENIES PAIN AT THIS TIME. SCANT AMOUNT OF DARK BROWN VAGINAL BLEEDING FROM VAGINAL EXAM EARLIER. REDNESS TO GROIN, AND INNER THIGHS. BARRIER CREAM APPLIED AND NYSTATIN. DARK PURPLE AREA NOTED TO RIGHT THIGH. BUTTOCK AND BACK FREE OF ANY BREAKDOWN. EDEMA 2+ TO BLE AND LEGS AND FEET ELEVATED ON PILLOWS. IV SALINE LOCKED TO RIGHT A/C. PULSES 2+ AND CAP REFIL <3. NO CURRENT NEEDS
[2020-07-03 16:38] LABS: POC Glucose,Bedside 131 (70-110)
--- NOTE | 2020-07-03 16:50 | HMH.GYNCON ---
ENTERPRISE ARCHITECT - CN: HPI - Data of Consult Consult date: 07/03/20 Requesting Physician: Devyn Perez MD Primary Care Provider: Devyn Perez MD - Consult Narrative Reason for consult: vaginal bleeding, other History of present illness: Ms. Hernández is a 84 year old female She was admitted with symptoms of a stroke and subsequently has improved. She is also had some vaginal bleeding and at 1 point she had up to 500 cc in a day of vaginal bleeding. She has a history of uterine cancer with hysterectomy. Recent CT scan shows a possible recurrence of her cancer as there is a 4 cm mass at the top of the vaginal vault. She also has a lesion in the pancreas suspicious for pancreatic carcinoma. Apparently she declined any further treatment of her uterine cancer. CC: Devyn Perez MD Review of Systems - Review of Systems Review of systems:: pertinent systems reviewed and negative unless documented below - *Neurologic Reports abnormal walking, Reports abnormal hearing, Reports abnormal speech, Reports confusion, Reports unsteadiness, Reports weakness, Denies loss of vision [facility] History Medical History: Reports:: Cerebrovascular Accident, Depression, Diabetes Mellitus Type 2, Hyperlipidemia, Hypertension, Transient Ischemic Attacks (TIA) Denies:: Diabetes Mellitus Type 1 *Have you ever received a pneumonia vaccine?: No (refused) *Have you received a flu vaccine this season?: Yes Other Medical History: Reports: Other Other Surgeries: Yes: No Previous Surgery, Hysterectomy-Total Amputation: No Fractures: No - *Social History Last grade of school completed: High school graduate Smoking Status: Never smoker Alcohol Intake: never Alcohol Intake Frequency:: other Substance Use Type: denies use *Occupational Status:: disabled Housing: residential Household Members: other *Travel in the last 8 weeks: None - Psychiatric History Pschychiatric History:: Reports:: Depression Family Hx:: Unable to obtain Meds Home Medications Medication Instructions Recorded Confirmed Type bisacodyl 10 mg rectal suppository 10 mg WA DAILY PRN #28 each 04/13/18 06/30/20 Rx sennosides 8.6 mg-docusate sodium 1 tab PO BID PRN #30 tab 04/13/18 06/30/20 Rx 50 mg tablet sertraline 50 mg tablet 50 mg PO DAILY #90 tab 04/13/18 06/30/20 Rx Acetaminophen [Acetaminophen 325mg 650 mg PO Q6HP PRN 06/30/20 06/30/20 History tab] Atorvastatin Calcium [Lipitor 40mg 40 mg PO HS 06/30/20 06/30/20 History Tablet*] Loratadine [Claritin 10mg 10 mg PO DAILY 06/30/20 06/30/20 History Tablet] Losartan Potassium 100 mg PO DAILY 06/30/20 06/30/20 History Multivitamin [Multivitamins] 1 each PO DAILY 06/30/20 06/30/20 History amantadine HCL [Amantadine] 50 mg PO BID 06/30/20 06/30/20 History hydroCHLOROthiazide [HCTZ 25mg 25 mg PO DAILY 06/30/20 06/30/20 History tab] Allergies Allergy/AdvReac Type Severity Reaction Status Date / Time No Known Allergies Allergy Verified 06/11/20 17:16 ENTERPRISE ARCHITECT - Exam Vital signs: Temp Pulse Resp BP Pulse Ox 98.5 F 79 18 135/71 94 L 07/03/20 12:00 07/03/20 12:00 07/03/20 12:00 07/03/20 12:00 07/03/20 12:00 - Constitutional no acute distress - Routine HEENT Exam Head: Present: normocephalic Eye: Present: EOMI, PERRL ENT: Present: mucous membranes moist - Routine Abdominal Exam Present: soft. Absent: tenderness, distended, rebound, guarding - Routine Exam Patient deferred: external exam, groin exam, perineal exam Comments: I looked at the top of the vagina and the vagina is quite narrow consistent with her previous radiotherapy. The vagina is very atrophic and easily traumatized. There is a small amount of blood from the touching the top of the vagina. There were no masses that I could feel. ENTERPRISE ARCHITECT - Results - Labs CBC & Chem 7: 07/02/20 08:31 07/02/20 08:31 Assessment and Plan (1) Cerebrovascular accident Status: Acute Qualifiers: CVA
--- NOTE | 2020-07-03 18:40 | PC.NURSE ---
pt cleaned up at this time. barrier cream applied and nystatin.
[2020-07-03 20:47] LABS: POC Glucose,Bedside 179 (70-110)
[2020-07-04 04:00] VITALS: BP 132/70; PULSE 73; RESP 18; TEMP 36.6; O2SAT 94
--- NOTE | 2020-07-04 04:21 | PC.NURSE ---
Spoke with Dr. Perez about Pt only having 100mls of urine output since shift change, Pt has not had much PO fluids this shift, Orders given to insert holcomb catheter to check for retention, leave holcomb in place, If no output start IV fluids, Orders v/r
--- NOTE | 2020-07-04 04:44 | PC.NURSE ---
Holcomb catheter placed, 500mL of yellow urine drained, holcomb left per MD order
--- NOTE | 2020-07-04 04:46 | PC.NURSE ---
Pt has slept throughout this shift, Pt oriented to name and birthdate, BLT lungs CTA, Pt IV saline locked, pts abdominal fold remains reddened. Pt had decreased urine output this shift, MD ordered holcomb placement to check for urine retention, 500mLs drained upon placement. Pt has not had vaginal bleeding this shift, +2 pitting edema BLE, Legs elevated on pillow, Pt denies pain, SOA, headache, or N/V. Pt denies any needs at this time.
[2020-07-04 08:00] VITALS: O2SAT 95
[2020-07-04 08:15] VITALS: BP 140/68; PULSE 75; RESP 18; TEMP 36.5
--- NOTE | 2020-07-04 11:20 | PC.NURSE ---
pt up in chair at this time- done okay with x2 assist with therapy. alarm set on patient for safety precautions.
--- NOTE | 2020-07-04 12:01 | HMH.PTEV ---
Physical Therapy Evaluation Rehab PT IP Evaluation Start: 07/04/20 10:16 Freq: .once Status: Active Protocol: Document 07/04/20 11:00 WILMER (Rec: 07/04/20 12:01 WILMER [id number]) Subjective/History History History Ms. Janice Hernández is an 89 y /o felae who resides at [facility]. Pt has hx pf hemorrhagis CVA w/ L side affect - pt was admitted to [facility] thru ED w/ facial drooping , dysarthria, weakness and confusion. Subjective Subjective pt reports she hasn't been up since she's been here - of note pt is confused to place and time and feels she is at [facility] - pt is [facility] Rehab PT IP Eval Objective Appearance Patient Behavior Cooperative,Guarded Patient Orientation Name Difficulty following instructions mild Speech Pattern Appropriate Ambulation Patient Able to Ambulate Yes Ambulation Observation IP General Gait Pattern Observation Ataxic Gait,Shuffling Step, Decrease Weight Bear (L), Decrease Stride Lngth (L) Ambulation Distance (feet) 3 Ambulation Assistive Device Rolling Walker Ambulation Ability Minimal x 2 (25% assist) Balance Ability to Arise Unable Sitting Balance Steady, safe Standing Balance Unsteady Dynamic Sitting Balance Ability Fair Dynamic Standing Balance Ability Poor Transfers Bed Transfer Ability Contact Guard/Hand Hold, Minimal x 1 (25% assist) Chair Transfer Ability Minimal x 1 (25% assist) Sit to Stand Bed Transfer Ability Minimal x 1 (25% assist), Minimal x 2 (25% assist) Sit to Stand Chair Transfer Ability Minimal x 1 (25% assist), Minimal x 2 (25% assist) ROM LUE PT ROM Status ABN Abnormal ROM Comment flexion contracure at elbow/ wrist from CVA MMT LUE PT MMT ABN Abnormal MMT Grade pt does not have full ROM 3-/5 Rehab PT IP prob,goals,plan Problems Date of Evaluation: 07/04/20 PT IP Problems Transfers,Gait,Balance,Safety Rehab Potential Rehab Potential Fair Equipment Needs Assistive Devices Platform Walker Plan PT Intervention Plan Bed Mobility,Transfers,Gait, Therapeutic Exercise PT Plan Frequency
[2020-07-04 12:19] LABS: POC Glucose,Bedside 136 (70-110)
--- NOTE | 2020-07-04 14:22 | HMH.ACPN2 ---
Internal Medicine - PN: Subj *Date: 07/05/20 *Time: 06:16 Interval history: pt doing ok - had urinary retention and holcomb replaced - has prev cva with residual of dec use of lt upper ext and dec ability to ambulate sec to cva - wheelchair and transfer only with assistance Exam Vital signs and Labs for Last 24 Hours: Temp Pulse Resp BP Pulse Ox 97.9 F 73 18 132/70 95 07/04/20 04:00 07/04/20 04:00 07/04/20 04:00 07/04/20 04:00 07/04/20 08:00 Laboratory Results - last 24 hr 07/03/20 16:26: POC Glucose 131 H 07/03/20 20:20: POC Glucose 179 H 07/04/20 12:12: POC Glucose 136 H I & O for Last 24 hours: Intake & Output 07/02/20 07/03/20 07/04/20 07/05/20 11:59 11:59 11:59 11:59 Intake Total 240 / 240 840 / 840 Output Total 1377 / 1377 2300 / 2300 1500 / 1500 Balance -1137 / -1137 -1460 / -1460 -1500 / -1500 Weight 221 lb 3 oz - Constitutional no acute distress, obese - *Routine HEENT Exam Head: Present: normocephalic Eye: Present: EOMI, PERRL ENT: Present: mucous membranes dry - *Routine Neck Exam Absent: JVD - *Routine Respiratory Exam Present: decreased breath sounds - *Routine Cardiovascular Exam Present: RRR, murmur, S4 - *Routine Abdominal Exam Present: soft. Absent: tenderness - *Routine Extremities Exam Absent: calf tenderness - *Routine Skin Exam Present: intact - *Routine Neurological Exam Present: alert, CN II-XII intact, motor deficit has dec use and atrophy lt upper ext and weakness lt lower ext with nonambulatory sec to lt sided weakness - Routine Psychiatric Exam Present: cooperative. 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 Category: Medical Code(s): I69.922 - Dysarthria following unspecified cerebrovascular disease (3) Essential (primary) hypertension Status: Chronic Category: Medical Code(s): I10 - Essential (primary) hypertension (4) Hyperlipidemia Status: Chronic Qualifiers: Hyperlipidemia type: other hyperlipidemia Qualified Code(s): E78.49 - Other hyperlipidemia Category: Medical Code(s): E78.5 - Hyperlipidemia, unspecified (5) Obesity Status: Chronic Qualifiers: Obesity type: due to excess calories Obesity classification: adult class 2 (BMI 35 - 39.9) Serious obesity comorbidity presence: unspecified whether serious comorbidity present Body mass index: BMI 35.0-35.9 Qualified Code(s): E66.09 - Other obesity due to excess calories; Z68.35 - Body mass index [BMI] 35.0-35.9, adult Category: Medical Code(s): E66.9 - Obesity, unspecified (6) Other specified depressive episodes Status: Chronic Category: Medical Code(s): F32.89 - Other specified depressive episodes (7) Uterine cancer Status: Chronic Category: Medical Code(s): C55 - Malignant neoplasm of uterus, part unspecified (8) Lesion of pancreas Status: Acute Category: Medical Code(s): K86.9 - Disease of pancreas, unspecified (9) Cholelithiases Status: Acute Category: Medical Code(s): K80.20 - Calculus of gallbladder without cholecystitis without obstruction (10) Hemiplegia and hemiparesis following cerebral infarction affecting left dominant side Status: Chronic Category: Medical Code(s): I69.352 - Hemiplegia and hemiparesis following cerebral infarction affecting left dominant side (11) Pelvic mass in female Status: Acute Category: Medical Code(s): R19.00 - Intra-abdominal and pelvic swelling, mass and lump, unspecified site (12) Pancreatic duct dilated Status: Acute Category: Medical Code(s): K86.89 - Other specified diseases of pancreas (13) Left renal mass Status: Acute
[2020-07-04 16:20] VITALS: BP 128/71; PULSE 78; RESP 18; TEMP 36.9; O2SAT 94
--- NOTE | 2020-07-04 16:20 | PC.NURSE ---
Reassessment done at this time. pt a/o x3. Reorients well. lungs cta and bowel sounds active x4. 2 bm so far my shift. iv saline locked to right a/c. 2+ edema noted ble (elevated on pillows). Yeast infection in groin area (powder applied). Redness, dark purple irritated area on both inner thighs. Barrier cream as been applied today this shift. Patient is starting to get red on back. No open areas noted. will continue to monitor this. call light within reach.
--- NOTE | 2020-07-04 16:20 | PC.NURSE ---
pt has sat up most of afternoon in chair. Has tolerated this very well. Pt reports she likes sitting up. pt transported back to bed r/t bowel movement and need to have brief changed.
[2020-07-04 16:34] LABS: POC Glucose,Bedside 137 (70-110)
[2020-07-04 20:00] VITALS: O2SAT 94
[2020-07-04 20:15] VITALS: BP 156/92; PULSE 85; RESP 18; TEMP 37.2; O2SAT 94
[2020-07-04 20:39] LABS: POC Glucose,Bedside 150 (70-110)
[2020-07-05 04:00] VITALS: BP 155/76; PULSE 82; RESP 16; TEMP 37.1; O2SAT 94
--- NOTE | 2020-07-05 04:27 | PC.NURSE ---
No acute changes this shift, Pt has rested comfortably during this shift, Pt oriented to name, birthdate, and situation, BLT lungs CTA, Bowel sounds present in all 4 quadrants, IV S/L, Pt turned Q2H for reddened bottom, no breakdown noted, Pt has voided per brief and bedpan, Pt denies SOA, headache, pain, or N/V
[2020-07-05 05:20] LABS: POC Glucose,Bedside 162 (70-110)
--- NOTE | 2020-07-05 06:29 | US_ITS ---
PROCEDURE: US KIDNEY CLINICAL INDICATION: renal mass COMPARISON: MR MR ABDOMEN WO/W CON from 07/03/2020 FINDINGS: The right kidney is 14 x 6 by 7 cm. A large cyst is present in the lower pole on the right measuring 6 x 7 cm with benign characteristics. No hydronephrosis. The left kidney is 12 x 6 by 6 cm. There is mild left-sided hydronephrosis. A solid-appearing mass is present in the upper pole of the left kidney. This measures 4.5 x 3.6 x 3.7 cm corresponding to the abnormality noted on the MRI suspicious for renal neoplasm. A 2.5 cm cyst is present in the mid polar region. Incidental note is made of cholelithiasis. IMPRESSION: 1. 4.5 cm hypoechoic solid appearing left renal mass suspicious for neoplasm. 2. Mild left hydronephrosis. 3. Bilateral renal cysts. 4. Cholelithiasis Dictated by: Nadeem Hernandez MD 07/05/2020 14:48 Nadeem Hernandez MD in [facility] 07/05/2020 14:48
--- NOTE | 2020-07-05 07:15 | PC.NURSE ---
Report given to MiquelRN
--- NOTE | 2020-07-05 07:20 | PC.NURSE ---
Report received from CINDY Aguiar.
--- NOTE | 2020-07-05 08:15 | PC.NURSE ---
Pt placed on bedpan to void. Voided moderate amt. Unable to measure because most of it ended up on chux. Barrier Cream and Nystatin reapplied to skin folds. Only faint redness remains on inner thighs. No skin breakdown or irritation noted on legs or butt.
[2020-07-05 08:20] VITALS: BP 141/70; PULSE 88; RESP 20; TEMP 37.1; O2SAT 92
--- NOTE | 2020-07-05 08:30 | PC.NURSE ---
at to see pt.
[2020-07-05 08:43] LABS: Basophils # 0.1 K/mm3 (0-0.2); Basophils % 0.4 % (0.1-2.0); Eosinophils # 0.2 K/mm3 (0.0-0.4); Eosinophils % 1.9 % (0.1-12.0); Hematocrit 35.1 % (37.0-47.0); Hemoglobin 11.7 g/dL (12.2-16.2); Lymphocytes % 7.9 % (10-50); Mean Corpuscular HGB Conc 33.4 g/dL (31.8-35.4); Mean Corpuscular Hemoglobin 30.8 pg (27.0-31.2); Mean Corpuscular Volume 92.2 fl (81-99); Mean Platelet Volume 7.6 fl (7.4-10.4); Monocytes # 0.5 K/mm3 (0.1-1.0); Monocytes % 4.2 % (1.7-9.3); Neutrophils # 10.2 K/mm3 (1.8-7.8); Neutrophils % 85.6 % (37.0-80.0); Platelet Count 374 K/mm3 (142-424); Red Blood Count 3.81 M/mm3 (4.20-5.40); Red Cell Distribution Width 15.6 % (11.5-17.5)
[2020-07-05 08:48] LABS: Chloride 101 mmol/L (98-107); Potassium 3.6 mmoL/L (3.5-5.1); Sodium 134 mmol/L (136-145)
[2020-07-05 08:51] LABS: Alanine Aminotransferase 21 U/L (12-78); Albumin Level 3.9 g/dl (3.5-5.0); Albumin/Globulin Ratio 1.3 (1.1-1.8); Alkaline Phosphatase 167 U/L (38-126); Anion Gap 11.6 mEq/L (5-15); Aspartate Amino Transferase 29 U/L (14-36); Bilirubin,Total 0.9 mg/dl (0.2-1.3); Blood Urea Nitrogen 16 mg/dl (7-17); Calcium 9.2 mg/dl (8.4-10.2); Carbon Dioxide 25 mmol/L (22.0-30.0); Creatinine Clearance Estimated 68 mL/min (50-200); Estimated Glomerular Filt Rate 95 ml/min (>60); GFR (African American) 116 ML/MIN (>60); Globulin 3.1 g/dL (1.3-3.2); Glucose 210 mg/dl (74-100); MANUAL DIFFERENTIAL MANUAL DIFFERENTIAL (MANUAL DIFF)
[2020-07-05 09:00] VITALS: O2SAT 92
[2020-07-05 09:01] LABS: Lymphocytes % 7 % (10-50); Monocytes % 3 % (2-9); Neutrophils % 90 % (42-76); Platelet Estimate Normal; RBC Morphology Normal; Total Cells Counted 100
--- NOTE | 2020-07-05 09:11 | PC.NURSE ---
Radiology at to perform Renal Ultrasound.
--- NOTE | 2020-07-05 09:34 | PC.NURSE ---
Renal Ultrasound Complete
--- NOTE | 2020-07-05 10:25 | HMH.ACPN ---
Internal Medicine - PN: Subj *Date: 07/05/20 *Time: 10:25 Exam Vital signs and Labs for Last 24 Hours: Temp Pulse Resp BP Pulse Ox 98.8 F 88 20 141/70 H 92 L 07/05/20 08:20 07/05/20 08:20 07/05/20 08:20 07/05/20 08:20 07/05/20 09:00 Laboratory Results - last 24 hr 07/04/20 12:12: POC Glucose 136 H 07/04/20 16:23: POC Glucose 137 H 07/04/20 20:31: POC Glucose 150 H 07/05/20 05:12: POC Glucose 162 H 07/05/20 08:33: WBC 12.0 H, RBC 3.81 L, Hgb 11.7 L, Hct 35.1 L, MCV 92.2, MCH 30.8, MCHC 33.4, RDW 15.6, Plt Count 374, MPV 7.6, Neut % (Auto) 85.6 H, Lymph % (Auto) 7.9 L, [place] % (Auto) 4.2, Eos % (Auto) 1.9, Baso % (Auto) 0.4, Neut # (Auto) 10.2 H, Lymph # (Auto) 1.0, [place] # (Auto) 0.5, Eos # (Auto) 0.2, Baso # (Auto) 0.1, Total Counted 100, Neutrophils % (Manual) 90 H, Lymphocytes % (Manual) 7 L, Monocytes % (Manual) 3, Platelet Estimate Normal, RBC Morphology Normal 07/05/20 08:33: Sodium 134 L, Potassium 3.6, Chloride 101, Carbon Dioxide 25, Anion Gap 11.6, BUN 16, Creatinine 0.60, Estimated Creat Clear 68, Estimated GFR 95, Est GFR ( Amer) 116, Glucose 210 H, Calcium 9.2, Total Bilirubin 0.9, AST 29, ALT 21, Alkaline Phosphatase 167 H, Total Protein 7.0, Albumin 3.9, Globulin 3.1, Albumin/Globulin Ratio 1.3 I & O for Last 24 hours: Intake & Output 07/02/20 07/03/20 07/04/20 07/05/20 23:59 23:59 23:59 23:59 Intake Total 960 / 960 120 / 120 720 / 720 Output Total 1976 1400 / 1400 901 / 901 Balance -1017 / -1017 -1280 / -1280 -181 / -181 Weight 100.329 kg Assessment and Plan (1) Cerebrovascular accident Status: Acute Qualifiers: CVA mechanism: unspecified Qualified Code(s): I63.9 - Cerebral infarction, unspecified Category: Medical Code(s): I63.9 - Cerebral infarction, unspecified (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 Category: Medical Code(s): I69.922 - Dysarthria following unspecified cerebrovascular disease (3) Essential (primary) hypertension Status: Chronic Category: Medical Code(s): I10 - Essential (primary) hypertension (4) Hyperlipidemia Status: Chronic Qualifiers: Hyperlipidemia type: other hyperlipidemia Qualified Code(s): E78.49 - Other hyperlipidemia Category: Medical Code(s): E78.5 - Hyperlipidemia, unspecified (5) Obesity Status: Chronic Qualifiers: Obesity type: due to excess calories Obesity classification: adult class 2 (BMI 35 - 39.9) Serious obesity comorbidity presence: unspecified whether serious comorbidity present Body mass index: BMI 35.0-35.9 Qualified Code(s): E66.09 - Other obesity due to excess calories; Z68.35 - Body mass index [BMI] 35.0-35.9, adult Category: Medical Code(s): E66.9 - Obesity, unspecified (6) Other specified depressive episodes Status: Chronic Category: Medical Code(s): F32.89 - Other specified depressive episodes (7) Uterine cancer Status: Chronic Category: Medical Code(s): C55 - Malignant neoplasm of uterus, part unspecified (8) Lesion of pancreas Status: Acute Category: Medical Code(s): K86.9 - Disease of pancreas, unspecified (9) Cholelithiases Status: Acute Category: Medical Code(s): K80.20 - Calculus of gallbladder without cholecystitis without obstruction (10) Hemiplegia and hemiparesis following cerebral infarction affecting left dominant side Status: Chronic Category: Medical Code(s): I69.352 - Hemiplegia and hemiparesis following cerebral infarction affecting left dominant side (11) Pelvic mass in female Status: Acute Category: Medical Code(s): R19.00 - Intra-abdominal and pelvic swelling, mass and lump, unspecified site (12) Pancreatic duct dilated Status: Acute Category: Medical Code(s): K86.89 - Other specified diseases of pancreas (13) Left renal mass Status: Acute Category: Medical Code(s): N28.89 - Other specified disorders of kidney and ureter (14) R
[2020-07-05 11:16] LABS: POC Glucose,Bedside 179 (70-110)
--- NOTE | 2020-07-05 11:21 | PC.NURSE ---
Pt voided per bsc again, moderate amt. FSBS results 179, 2 units Humalog Insulin given for SS coverage. Denies any needs at this time. Denies feeling any pain.
--- NOTE | 2020-07-05 12:00 | PC.NURSE ---
Pt's [id number] at bedside visiting.
--- NOTE | 2020-07-05 12:56 | HMH.DCSUM ---
General - General Admission date:: 06/30/20 Discharge date: 07/05/20 HPI HPI: Patient is an 84-year-old white female who is admitted through the emergency room for stroke symptoms. Patient is a resident of [facility]. Nursing staff there noted worsening left facial droop and worsening dysarthria. She has a history of hemorrhagic stroke. CT imaging through the emergency room showed an old lacunar infarct in the right basal ganglion. Her NIH stroke score was 13. Patient also has a history of uterine carcinoma. She is status post hysterectomy. She is having some vaginal bleeding. She was being treated at , but subsequently made a decision to withhold treatment. CT abdomen and pelvis was obtained through the emergency room. Findings include a dilation of the pancreatic duct with a cystic lesion noted at the uncinate process. Cholelithiasis was evident. Cystic lesion noted in the right kidney. Findings also suspicious for a recurrence of her uterine cancer. Patient was unable to provide much of a history initially per ER work-up. Subsequently her speech has improved, he answers questions appropriately and is oriented to place. She knows that she is in [facility]. The left facial droop looks to be improved from previous description. She is able to move all 4 extremities. [employer] is weak bilaterally but nearly symmetric. He appears to be comfortable. There is no overt jaundice. Her abdomen is soft, without focal tenderness. She is admitted for further evaluation and treatment. Anticoagulation, platelet inhibitors are contraindicated at present given her history of hemorrhagic stroke and vaginal bleeding. Hospital Course Hospital Course: pt with sig improvement in neuro sx and returned to baseline which is nonambulatory with dec use of lt lower and upper ext as residual from prev cva- pt had sig finding on ct of abd and pelvis with pelvic mass prob uterine cancer with mets and changes to lt kidney and colon and pancreas - pt was seen by dr campo - see his consult and reffered to obstetrics and gynecology professor cancer - dr moore who has seen pt in past who will review xrays and reports - pt has stable blood work and diet and no pain issues and was able to urinate w/o holcomb despite episode of acute bladder dysfunction - discussed with patient and family and will be followed as op at this time Objective Vital signs: Temp Pulse Resp BP Pulse Ox 98.8 F 88 20 141/70 H 92 L 07/05/20 08:20 07/05/20 08:20 07/05/20 08:20 07/05/20 08:20 07/05/20 09:00 no acute distress, obese - *Routine HEENT Exam Head: Present: normocephalic Eye: Present: EOMI, PERRL ENT: Present: mucous membranes dry - *Routine Neck Exam Present: supple. Absent: JVD, carotid bruit - *Routine Respiratory Exam Present: decreased breath sounds - *Routine Cardiovascular Exam Present: RRR, murmur, S4 - *Routine Abdominal Exam Present: soft. Absent: tenderness - *Routine Extremities Exam Absent: calf tenderness - *Routine Skin Exam Present: intact - *Routine Neurological Exam Present: alert, CN II-XII intact dec strength and use of lt upper and lower ext sec to prev cva - - Routine Psychiatric Exam Present: normal affect, cooperative Results Labs on day of discharge: Labs from last 24 hours 07/05/20 07/05/20 07/05/20 11:07 08:33 08:33 WBC 12.0 H RBC 3.81 L Hgb 11.7 L Hct 35.1 L MCV 92.2 MCH 30.8 MCHC 33.4 RDW 15.6 Plt Count 374 MPV 7.6 Neut % (Auto) 85.6 H Lymph % (Auto) 7.9 L [place] % (Auto) 4.2 Eos % (Auto) 1.9 Baso % (Auto) 0.4 Neut # (Auto) 10.2 H Lymph # (Auto) 1.0 [place] # (Auto) 0.5 Eos # (Auto) 0.2 Baso # (Auto) 0.1 Total Counted 100 Neutrophils % (Manual) 90 H Lymphocytes % (Manual) 7 L Monocytes % (Manual) 3 Platelet Estimate Normal RBC Morphology Normal Sodium 134 L Potassium 3.6 Chloride 101 C
[2020-07-05 13:59] LABS: Adenovirus,PCR Not Detected (NotDetected); Bordetella Pertussis Not Detected (NotDetected); Chlamydophila Pneumoniae, PCR Not Detected (NotDetected); Coronavirus 19, PCR Not Detected (NotDetected); Coronavirus 229E Not Detected (NotDetected); Coronavirus NL63 Not Detected (NotDetected); Coronavirus OC43 Not Detected (NotDetected); Coronovirus HKU1,PCR Not Detected (NotDetected); Human Metapneumovirus Not Detected (NotDetected); Influenza A, PCR Not Detected (NotDetected); Influenza AH1, 2009 Not Detected (NotDetected); Influenza AH1, PCR Not Detected (NotDetected); Influenza AH3,PCR Not Detected (NotDetected); Influenza B, PCR Not Detected (NotDetected); Mycoplasma Pneumoniae, PCR Not Detected (NotDetected); Parainfluenza 1, PCR Not Detected (NotDetected); Parainfluenza 2, PCR Not Detected (NotDetected); Parainfluenza 3, PCR Not Detected (NotDetected); Parainfluenza 4, PCR Not Detected (NotDetected); Respiratory Syncytial Virus Not Detected (NotDetected); Rhinovirus/Enterovirus Not Detected (NotDetected)
--- NOTE | 2020-07-05 16:00 | PC.NURSE ---
Report called to Kim Amador RN at [place]
--- NOTE | 2020-07-05 16:01 | PC.NURSE ---
Sophia at [facility] notified of need for Van transport. Verbalizes Understanding.
--- NOTE | 2020-07-05 16:05 | PC.NURSE ---
Pt's [id number] remains at bs.
--- NOTE | 2020-07-05 16:40 | PC.NURSE ---
Discharged via w/c with Roger Reyes
[2020-07-26 14:21] LABS: POC Glucose,Bedside 159 (70-110)
== END 2020-07-05 16:45 | DRG 65 ==
LOC: ER 07:46 → 2ND 11:27 → OB 19:49
PROVIDERS: Emergency Medicine; Nurse Practitioner Family; Admitting Provider Emergency Medicine; Emergency Provider Emergency Medicine; PCP Emergency Medicine; Visit Provider Emergency Medicine
DX: I63.9 Cerebral infarction, unspecified (principal); I69.352 Hemiplegia and hemiparesis following cerebral infarction affecting left dominant side; C79.89 Secondary malignant neoplasm of other specified sites; Z85.42 Personal history of malignant neoplasm of other parts of uterus; I69.320 Aphasia following cerebral infarction; I69.322 Dysarthria following cerebral infarction; Z79.82 Long term (current) use of aspirin; I10 Essential (primary) hypertension; E66.9 Obesity, unspecified; R29.713 NIHSS score 13; R33.9 Retention of urine, unspecified; R29.810 Facial weakness; E78.5 Hyperlipidemia, unspecified; F32.89 Other specified depressive episodes; K80.20 Calculus of gallbladder without cholecystitis without obstruction; K86.9 Disease of pancreas, unspecified
CPT/HCPCS: 36415; 70450; 71045; 72197; 74177; 74183; 76376; 76770; 76856; 80048; 80053; 81001; 82962; 84484; 85007; 85025; 85610; 85730; 87086; 87581; 87633; 87798; 93005; 96365; 97110; 97161; 97530; 99284; A9576; Q9967